=== PATIENT | female | born 1955 | race Caucasian/White ===

== ENCOUNTER 2016-08-19 21:07 | Emergency (ER) | payer MEDICAID ==
[~2016-08-19] VITALS: Ht 160 cm; Wt 81.6 kg
[~2016-08-19 21:07] MED LIST: AZITHROMYCIN250 MG PO; BENADRYL 25MG C25 MG PO; KEFLEX 500MG.500 MG PO; NOMEDS XX
--- OUTSIDE RECORDS SUMMARY | 2016-08-19 21:51 | External Medical Summary Rpt ---
Author Author , Organization [employer] Address Unknown Phone Unavailable Care Team Providers Care Commercial Singer Name Role Phone Bhavesh Rashid Unavailable Unavailable SRIKANTH CHANCE, Bhavesh Rashid III, MD Purpose Continuity of Care Document - 06-14-2012 through 2016 Problems Code Diagnosis DOS Provider Status 466.0 466.0 ACUTE 06-14-2012 [facility] Allergies, Adverse Reactions, Alerts Type Allergy to substance Adverse Reaction to Substance Substance Reaction Severity NO KNOWN ALLERGIES Unknown Unknown Medications Na ND Rx Da Fi Fi Am Da Di Ph RX Ph St me C No te ll ll ou ys ag ar # ys at rm s nt no ma ic us Or Da si cy ia de te s n re d [place] 59 04 0 No IT 76 -1 HR 23 4- Lo OM 06 20 ng YC 00 13 er IN 3 Ac 25 ti 0 ve MG TA BL ET Vital Signs 06-14-2012 19:00 Name Value Interpretat Reference Comment ion Range Body 98.9 [degF] Temperature BP 67 mm[Hg] Diastolic BP Systolic 118 mm[Hg] O2% 95 % Respiratory 18 /min Rate 06-14-2012 18:49 Name Value Interpretat Reference Comment ion Range Heart 64 /min Rate/Pulse 06-14-2012 17:59 Name Value Interpretat Reference Comment ion Range Body 98.9 [degF] Temperature 06-14-2012 16:44 Name Value Interpretat Reference Comment ion Range BP 85 mm[Hg] Diastolic BP Systolic 117 mm[Hg] Heart 79 /min Rate/Pulse O2% 97 % Respiratory 18 /min Rate Results Labs Lab Lab Date Result Refere Interp Status Commen Order Detail nces retati t Range on COMPREHENSIVE METABOLIC PANEL (06-14-2012 16:20) Glucose 99 74-106 complet 013 mg/dL ed Bld-mCn 16:20 c BUN 10 7-18 complet Bld-mCn 013 mg/dL ed c 16:20 Creat 0.7 0.6-1.0 complet SerPl-m 013 mg/dL ed Cnc 16:20 ESTIMAT 164 50-200 complet ED 013 ML/MIN ed CREATIN 16:20 INE CLEARAN CE GFR 87 59- complet (ESTIMA 013 ML/MIN ed KAILYN) 16:20 Sodium 139 136-145 complet SerPl-s 013 mmoL/L ed Cnc 16:20 Potassi 4.1 3.5-5.1 complet um 013 mmoL/L ed SerPl-s 16:20 Cnc Chlorid 103 98-107 complet e 013 mmoL/L ed SerPl-s 16:20 Cnc CO2 31 21.0-32 complet SerPl-s 013 mmoL/L .0 ed Cnc 16:20 Calcium 9.6 8.5-10. complet 013 mg/dL 1 ed SerPl-m 16:20 Cnc Prot 7.6 6.4-8.2 complet SerPl-m 013 gm/dL ed Cnc 16:20 Albumin 3.9 3.4-5.0 complet 013 gm/dL ed SerPl-m 16:20 Cnc Globuli 3.7 1.3-3.2 complet n 013 gm/dL ed Ser-mCn 16:20 c Albumin 1.1 UNK 1.1-1.8 complet /Glob 013 ed SerPl-m 16:20 Rto Bilirub 0.2 0.2-1.0 complet 013 mg/dL ed SerPl-m 16:20 Cnc AST 15 U/L 15-37 complet SerPl-c 013 ed Cnc 16:20 ALT 06-14- 34 U/L 30-65 complet SerPl-c 013 ed Cnc 16:20 ALP 06-14- 113 U/L 50-136 complet SerPl-c 013 ed Cnc 16:20 CBC with AUTO DIFF (06-14-2012 16:20) WBC # 14-2 6.4 4.8-10. complet Bld 013 K/MM3 8 ed Auto 16:20 RBC # 04-14-2 4.43 4.2-5.4 complet Bld 013 M/mm3 ed Auto 16:20 Hgb 04-14-2 14.1 12.2-16 complet Bld-mCn 013 g/dL .2 ed c 16:20 Hct Fr -14-2 42.2 % 37.0-47 complet Bld 013 .0 ed 16:20 MCV RBC -14-2 95.2 fl 82.2-97 complet 013 .8 ed 16:20 MCH RBC -14-2 31.7 pg 27-31.2 complet Qn 013 ed Auto 16:20 MEAN -14-2 33.3 31.8-35 complet CORPUSC 013 g/dl .4 ed ULAR 16:20 HGB CONC RDW RBC -14-2 13.1 % 11.5-17 complet Auto 013 .5 ed 16:20 Platele -14-2 258 142-424 complet t Bld 013 K/mm3 ed Ql 16:20 Manual MEAN 06-14-2 8.5 fl 7.4-10. complet PLATELE 013 4 ed T 16:20 VOLUME Granulo 04-14-2 59.3 % 37.0-80 complet cytes 013 .0 ed Fr Bld 16:20 Auto LYMPH % 04-14-2 32.2 % 10-50.0 complet 013 ed 16:20 Monocyt 04-14-2 6.4 % 1.7-9.3 complet es Fr 013 ed Bld 16:20 Auto Eosinop 04-14-2 1.6 % 0.1-12. complet hil Fr 013 0 ed Bld 16:20 Auto Basophi 04-14-2 0.5 % 0.1-2.0 complet ls Fr 013 ed Bld 16:20 Auto Granulo 04-14-2 3.8 1.8-7.8 complet cytes # 013 K/mm3 ed Bld 16:20 Auto Lymphoc 04-14-2 2.1 0.7-4.5 complet ytes Fr 013 K/mm3 ed Bld 16:20 Auto Monocyt 04-14-2 0.4 0.1-1.0 complet es # 013 K/mm3 ed Bld 16:20 Auto Eosinop 04-14-2 0.1 0.0-0.4 complet hil # 013 K/mm3 ed Bld 16:20 Auto Basophi 0.0 0-0.2 complet ls # 013 K/MM3 ed Bld 16:20 Auto Encounters Encounter Start End Date Code Location Performer Type Date Emergency ALLAN Rashid (ER) 3 16:41 3 19:01 [facility] Bhavesh Leon
--- OUTSIDE RECORDS SUMMARY | 2016-08-19 21:51 | External Medical Summary Rpt ---
Author Author , Organization [employer] Address Unknown Phone Unavailable Care Team Providers Care Machine Whitener Name Role Phone Bhavesh Rashid Unavailable Unavailable SRIKANTH CHANCE, Bhavesh Rashid III, MD Purpose Continuity of Care Document - 06-14-2012 through 2016 Problems Code Diagnosis DOS Provider Status 466.0 466.0 ACUTE 06-14-2012 [facility] Allergies, Adverse Reactions, Alerts Type Allergy to [...] ALLAN Rashid (ER) 3 16:41 3 19:01 [facility] Bhavesh Leon
--- OUTSIDE RECORDS SUMMARY | 2016-08-19 21:52 | External Medical Summary Rpt ---
Demographics Preferred Language Lao Marital Status Unknown Shinto Affiliation Unknown Race Unknown Ethnic Group Unknown Author Author , Organization [employer] Address Unknown Phone Unavailable Purpose Continuity of Care Document - through 2016 Immunization No patient found.
--- OUTSIDE RECORDS SUMMARY | 2016-08-19 21:52 | External Medical Summary Rpt ---
Author Author [employer] Organization [employer] Address Unknown Phone Unavailable Purpose Continuity of Care Document - through 2016
--- OUTSIDE RECORDS SUMMARY | 2016-08-19 21:52 | External Medical Summary Rpt ---
Demographics Preferred Language Italian Marital Status Unknown Denominational Affiliation Unknown Race Unknown Ethnic Group Unknown Author Author , Organization [employer] Address Unknown Phone Unavailable Purpose Continuity of Care Document - through 2016 Immunization No patient found.
[2016-08-19 22:15] LABS: HEMOGLOBIN 14.3 g/dL (12.2-16.2); LYMPH # 2.3 K/mm3 (0.7-4.5); LYMPH % 26.7 % (10-50.0)
--- NOTE | 2016-08-19 22:38 | Emergency Room Report ---
History of Present Illness Time Seen by [id number] Presenting Problem in Triage Pt arrived:Walked Presenting Problem:C/O ALLERGY SYMPTOMS. 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 N Clinical Suspician of Infection? N Mental Status: 1 - Regular (Normal Baseline) Sepsis Risk:Low Sepsis Risk Have you (or family members/close friends) recently traveled outside the [place]? N If Yes, where/when: Have you had exposure to infectious disease within the past month? N TB? Other? Specify: Source patient, RN notes reviewed, family, old records Exam Limitations no limitations Comment pt with rt upper jaw with swelling with no diff swallowing Cardiac Chest Pain Chest pain indicative of cardiac No Timing/Duration this evening Severity moderate ALLERGIES Coded Allergies: No Known Allergies (03/19/15) Home Medications Reported Medications No Home Medications (NO HOME MEDICATIONS) 1 EACH XX ONCE History Medical History General CAD? No Angina: No [place]: No Hypertension? No Hyperlipidemia? No CHF? No DVT? No PE? No COPD? No Asthma? No Anemia? No GERD? No Gastric ulcers? No GI Bleed? No Hernia? No Thyroid Problems? No Hypothyroidism? No CVA? No Seizures? No Diabetes? No Renal Insuffiency? No End Stage Renal Disease? No UTI? No Stones? No BPH? No GB Disease: No Nephritic Syndrome? No Asplenia? No Hepatitis? No Sickle Cell Disease? No Arthritis? No Migraines? No Cataracts? No Glaucoma? No MRSA? No HIV? No TB? No Anxiety? No Depression? No Cancer? No More? 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 denies: ear discharge, mouth pain, throat swelling. Respiratory denies cough, denies wheezing Cardiovascular denies palpitations Gastrointestinal denies vomiting Genitourinary denies: dysuria, frequency, hesitancy, hematuria. Musculoskeletal denies back pain, denies joint pain, denies joint swelling, denies neck pain Skin denies rash Psychiatric/Neurological denies headache, denies seizure Physical Exam Vital Signs Vital Signs Date Time Temp Pulse Resp B/P Pulse O2 O2 Flow FiO2 Ox Delivery Rate 08/19 2314 98.3 71. 18 143/79 96 08/19 2248 18 08/19 2119 98.6 81 18 131/94 99 - WBC >12,000 or <4,000 or 10% bands? 2 or more SIRS Criteria Met? B/P:143/79 MAP:106 Creatinine >2.0? UA output<0.5ml/kg/hr for 2 hrs? Platelet count >100,000? Lactate >2.0mmol/1? INR >1.2 or PTT > than 60 sec? Evidence of Organ Dysfunction? Provider documented clinical suspician of infection? N Sepsis Criteria Count: 0 Sepsis Risk: Low Sepsis Risk General Appearance no apparent distress Eye Exam - bilateral eye PERRL, bilateral eye EOMI Comment lt subconj hemmorrage Ear, Nose, Throat dental caries, gingival disease Neck supple Respiratory Status No: respiratory distress. 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 No Results/Orders Laboratory Tests 08/19/16 2200: Sodium 140, Potassium 4.2, Chloride 103, Carbon Dioxide 29, BUN 11, Creatinine 0.8, Estimated Creat Clear 98, Estimated GFR (MDRD) 73, Glucose 98, Calcium 10.0 , Total Bilirubin 0.3, AST 7 L, ALT 17, Alkaline Phosphatase 106, Total Protein 8.4 H, Albumin 4.1, Globulin 4.3 H, Albumin/Globulin Ratio 1.0 L, WBC 8.5, RBC 4.57, Hgb 14.3, Hct 43.3, MCV 94.8, RDW 12.6, Plt Count 237, MPV 8.5, Gran % 66.4, Gran # 5.6, Lymphocytes % 26.7, Monocytes % 5.6, Eosinophils % 0.8, Basophils % 0.5, Lymphocytes # 2.3, Monocytes # 0.5, Eosinophils # 0.1, Basophils # 0.0, PUBS MCHC 33.0, MCH 31.3 H 08/19/162124: Sodium Cancelled, Potassium Cancelled, Chloride Cancelled, Carbon Dioxide Cancelled, BUN Cancelled, Creatinine Cancelled, Estimated Creat Clear Cancelled, Estimated GFR (MDRD) Cancelled, Glucose Cancelled, Calcium Cancelled, Total Bilirubin Cancelled, AST Cancelled, ALT Cancelled, Alkaline Phosphatase Cancelled, Total Protein Cancelled, Albumin Cancelled, Globulin Cancelled, Albumin/Globulin Ratio Cancelled, WBC Cancelled, RBC Cancelled, Hgb Cancelled, Hct Cancelled, MCV Cancelled, RDW Cancelled, Plt Count Cancelled, Gran % Cancelled, Gran # Cancelled, Lymphocytes % Cancelled, Eosinophils % Cancelled, Basophils % Cancelled, Lymphocytes # Cancelled, Eosinophils # Cancelled, Basophils # Cancelled, PUBS MCHC Cancelled, MCH Cancelled, Urine Color Cancelled , Urine Appearance Cancelled, Urine pH Cancelled, Ur Specific [place] Cancelled Current Medication Orders Sig/Nati Start time Last Medication Dose Route Stop Time Status Admin Clindamycin Phosphate 900 MG ONCE ONE 08/19 2244 AC 08/19 Sodium Chloride 100 ML IV 08/198 Ketorolac 30 MG ONCE ONE 08/19 2244 DC 08/19 Tromethamine IV 08/19 Ketorolac 0 .STK-MED ONE 08/19 2244 DC Tromethamine .ROUTE Methylprednisolone 125 MG ONCE ONE 08/19 2244 DC 08/19 Sodium Succinate IV 08/19 Methylprednisolone 0 .STK-MED ONE 08/19 2244 DC Sodium Succinate .ROUTE Sodium Chloride 100 ML .STK-MED ONE 08/19 2244 DC IV Clindamycin Phosphate 0 .STK-MED ONE 08/20 2243 DC IV Sodium Chloride 10 ML PRN PRN 08/190 AC IV 08/20 2153 Sodium Chloride 10 ML PRN PRN 08/19 2129 DC IV 08/20 2124 Orders Procedure Date/time Status DIET-NOTHING BY MOUTH 08/20 B Active IV SALINE LOCK 08/[address] SINUS (MAX-FACIAL W/O CONT) 08/[address] SCAN REQ 08/19 2128 Complete CBC WITH AUTO DIFF 08/19 2128 Complete CHEM 12 PROFILE 08/19 2128 Complete Departure Departure Time of Disposition 2237 Disposition DC Home or Self Care(routine) Clinical Impression Primary Impression: Odontogenic infection of jaw Secondary Impressions: Subconjunctival hemorrhage of left eye Condition STABLE Patient Instructions DI for Gingivitis Additional Instructions gargle and use meds and see pcp and dentist Discharge Counseling Counseled pt/family regarding diagnosis, test results, medications/RX, follow up needs Prescriptions Current Visit Scripts Clindamycin Hcl (Clindamycin 300MG) 300 MG PO TID #30 CAP ED Critical Care Critical Care No at 2333
[2016-08-19] MEDS ORDERED: CLINDAMYCIN HC300 MG PO (23:30)
[2016-08-19 23:33] VITALS: BP 143/79
--- NOTE | 2016-08-20 08:40 | RADIOLOGY REPORT PS360 ---
CT SINUS (MAX-FACIAL W/O CONT) COMPARISON: None HISTORY: Right-sided jaw pain and facial pain TECHNIQUE: Multiaxial scans of the perinasal sinuses and maxillofacial bones were obtained. Sagittal and coronal reformats were evaluated as well. FINDINGS: There is mild mucoperiosteal thickening of the right maxillary sinus primarily inferiorly. There is a possible small periapical lucency right maxillary molar tooth. There also is a small apparent fragment of a tooth seen between the existing maxillary molar teeth right side the mandible appears grossly intact and the temporomandibular joints appear normal bilaterally. The ethmoid, frontal and sphenoid sinuses appear clear and the left maxillary sinus is clear. The mastoids are clear. IMPRESSION: Minimal chronic inflammatory change right maxillary sinus and dental abnormalities right molar and premolar teeth as described above with possible tiny fragment of tooth presenting between the existing the seen on sagittal image #32. I agree with the [facility] report
== END 2016-08-19 23:39 | disposition home or self-care (01) ==
LOC: ER 21:07
PROVIDERS: Emergency Medicine
DX: M27.2 Inflammatory conditions of jaws (principal); B30.3 Acute epidemic hemorrhagic conjunctivitis (enteroviral)

== ENCOUNTER 2016-11-15 04:33 | Emergency (ER) | payer MEDICAID ==
[~2016-11-15] VITALS: Ht 160 cm; Wt 68.0 kg
[~2016-11-15 04:33] MED LIST changes: +CLINDAMYCIN HC300 MG PO
[2016-11-15] MEDS ORDERED: PREDNISONE 20MG20 MG PO (04:55)
--- NOTE | 2016-11-15 04:57 | Emergency Room Report ---
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 N Clinical Suspician of Infection? N Mental Status: 1 - Regular (Normal Baseline) Sepsis Risk:Low Sepsis Risk Have you (or family members/close friends) recently traveled outside the [place]? N If Yes, where/when: Have you had exposure to infectious disease within the past month? TB? Other? Specify: Source patient, RN notes reviewed, family, old records Exam Limitations no limitations Comment acute lt lat ankle pain to lt upper leg after walking through wet grass today - no fall and no neuro sx - she used otc meds w/o success - Cardiac Chest Pain Chest pain indicative of cardiac No Timing/Duration this evening Severity moderate ALLERGIES Coded Allergies: No Known Allergies (03/19/15) Home Medications Active Scripts Clindamycin Hcl (Clindamycin 300MG) 300 MG PO TID #30 CAP Prov: 08/19/16 Reported Medications No Home Medications (NO HOME MEDICATIONS) 1 EACH XX ONCE History Medical History General CAD? No Angina: No [place]: No Hypertension? No Hyperlipidemia? No CHF? No DVT? No PE? No COPD? No Asthma? No Anemia? No GERD? No Gastric ulcers? No GI Bleed? No Hernia? No Thyroid Problems? No Hypothyroidism? No CVA? No Seizures? No Diabetes? No Renal Insuffiency? No End Stage Renal Disease? No UTI? No Stones? No BPH? No GB Disease: No Nephritic Syndrome? No Asplenia? No Hepatitis? No Sickle Cell Disease? No Arthritis? No Migraines? No Cataracts? No Glaucoma? No MRSA? No HIV? No TB? No Anxiety? No Depression? No Cancer? No More? 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 Respiratory denies cough, denies orthopnea, denies stridor, denies wheezing Cardiovascular denies chest pain, denies palpitations, denies syncope Gastrointestinal denies abdominal pain, denies diarrhea, denies vomiting Genitourinary denies: dysuria, frequency, hesitancy, hematuria. Musculoskeletal see HPI, denies back pain, joint pain, denies joint swelling, denies neck pain Skin denies rash Psychiatric/Neurological denies headache, denies seizure Physical Exam Vital Signs Vital Signs Date Time Temp Pulse Resp B/P Pulse O2 O2 Flow FiO2 Ox Delivery Rate 11/15 0439 98.2 78 18 148/83 98 - WBC >12,000 or <4,000 or 10% bands? 2 or more SIRS Criteria Met? B/P:148/83 MAP:104 Creatinine >2.0? UA output<0.5ml/kg/hr for 2 hrs? Platelet count >100,000? Lactate >2.0mmol/1? INR >1.2 or PTT > than 60 sec? Evidence of Organ Dysfunction? Provider documented clinical suspician of infection? N Sepsis Criteria Count: 0 Sepsis Risk: Low Sepsis Risk General Appearance no apparent distress Eye Exam - bilateral eye PERRL, bilateral eye EOMI Ear, Nose, Throat normal ENT inspection Neck supple Respiratory Status No: respiratory distress. 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 No Departure Departure Time of Disposition 0454 Disposition DC Home or Self Care(routine) Clinical Impression Primary Impression: Radicular pain of left lower extremity Condition STABLE Patient Instructions DI for Lumbar Radiculopathy Additional Instructions use meds and see pcp of choice for follow up Discharge Counseling Counseled pt/family regarding diagnosis, medications/RX, follow up needs Prescriptions Current Visit Scripts Prednisone (Prednisone 20MG) 20 MG PO BID #10 TAB ED Critical Care Critical Care No at 6080
--- NOTE | 2016-11-15 04:57 | Emergency Room Report ---
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 N Clinical Suspician of Infection? N Mental Status: 1 - Regular (Normal Baseline) Sepsis Risk:Low Sepsis Risk Have you (or family members/close friends) recently traveled outside the [place]? N If Yes, where/when: Have you had exposure to infectious disease within the past month? TB? Other? Specify: Source patient, RN notes reviewed, family, old records Exam Limitations no limitations Comment acute lt lat ankle pain to lt upper leg after walking through wet grass today - no fall and no neuro sx - she used otc meds w/o success - Cardiac Chest Pain Chest pain indicative of cardiac No Timing/Duration this evening Severity moderate ALLERGIES Coded Allergies: No Known Allergies (03/19/15) Home Medications Active Scripts Clindamycin Hcl (Clindamycin 300MG) 300 MG PO TID #30 CAP Prov: 08/19/16 Reported Medications No Home Medications (NO HOME MEDICATIONS) 1 EACH XX ONCE History Medical History General CAD? No Angina: No [place]: No Hypertension? No Hyperlipidemia? No CHF? No DVT? No PE? No COPD? No Asthma? No Anemia? No GERD? No Gastric ulcers? No GI Bleed? No Hernia? No Thyroid Problems? No Hypothyroidism? No CVA? No Seizures? No Diabetes? No Renal Insuffiency? No End Stage Renal Disease? No UTI? No Stones? No BPH? No GB Disease: No Nephritic Syndrome? No Asplenia? No Hepatitis? No Sickle Cell Disease? No Arthritis? No Migraines? No Cataracts? No Glaucoma? No MRSA? No HIV? No TB? No Anxiety? No Depression? No Cancer? No More? 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 Respiratory denies cough, denies orthopnea, denies stridor, denies wheezing Cardiovascular denies chest pain, denies palpitations, denies syncope Gastrointestinal denies abdominal pain, denies diarrhea, denies vomiting Genitourinary denies: dysuria, frequency, hesitancy, hematuria. Musculoskeletal see HPI, denies back pain, joint pain, denies joint swelling, denies neck pain Skin denies rash Psychiatric/Neurological denies headache, denies seizure Physical Exam Vital Signs Vital Signs Date Time Temp Pulse Resp B/P Pulse O2 O2 Flow FiO2 Ox Delivery Rate 11/15 0439 98.2 78 18 148/83 98 - WBC >12,000 or <4,000 or 10% bands? 2 or more SIRS Criteria Met? B/P:148/83 MAP:104 Creatinine >2.0? UA output<0.5ml/kg/hr for 2 hrs? Platelet count >100,000? Lactate >2.0mmol/1? INR >1.2 or PTT > than 60 sec? Evidence of Organ Dysfunction? Provider documented clinical suspician of infection? N Sepsis Criteria Count: 0 Sepsis Risk: Low Sepsis Risk General Appearance no apparent distress Eye Exam - bilateral eye PERRL, bilateral eye EOMI Ear, Nose, Throat normal ENT inspection Neck supple Respiratory Status No: respiratory distress. 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 No Departure Departure Time of Disposition 0454 Disposition DC Home or Self Care(routine) Clinical Impression Primary Impression: Radicular pain of left lower extremity Condition STABLE Patient Instructions DI for Lumbar Radiculopathy Additional Instructions use meds and see pcp of choice for follow up Discharge Counseling Counseled pt/family regarding diagnosis, medications/RX, follow up needs Prescriptions Current Visit Scripts Prednisone (Prednisone 20MG) 20 MG PO BID #10 TAB ED Critical Care Critical Care No at 3155
[2016-11-15 05:08] VITALS: BP 148/83
== END 2016-11-15 05:15 | disposition home or self-care (01) ==
LOC: ER 04:33
DX: M54.10 Radiculopathy, site unspecified (principal); F17.210 Nicotine dependence, cigarettes, uncomplicated